=== PATIENT | male | born 1985 | race Caucasian/White ===

== ENCOUNTER 2017-03-07 09:47 | Emergency (ER) | payer OTHER ==
[2017-03-07 10:01] VITALS: BP 160/94
--- NOTE | 2017-03-07 11:00 | ED ---
Medical Screening - HPI Summary HPI Summary: 31 yr old male on Paxil for 8 years for anxiety, ran out of his medication three days ago. He is visiting from [place]. He requests refill of his medication. He has no history of any problems taking his medication. He has never had suicidal or homicidal thoughts. - History of Current Complaint Chief Complaint: UCMedRefill Stated Complaint: MED REFILL Time Seen by Provider: 03/07/17 10:46 PMH/Surg Hx/FS Hx/Imm Hx Psychiatric History: Reports: Hx Anxiety Infectious Disease History: No Infectious Disease History: Denies: Traveled Outside the [place] in Last 30 Days - Family History Known Family History: Positive: None - Social History Occupation: Employed Full-time Alcohol Use: Weekly Substance Use Type: Reports: None Smoking Status (MU): Never Smoked Tobacco Review of Systems Positive: Anxious All Other Systems Reviewed And Are Negative: Yes Physical Exam Triage Information Reviewed: Yes Vital Signs On Initial Exam: Initial Vitals Temp Pulse Resp BP Pulse Ox 98.3 F 78 14 160/94 100 03/07/17 09:56 03/07/17 09:56 03/07/17 09:56 03/07/17 09:56 03/07/17 09:56 Vital Signs Reviewed: Yes Appearance: Positive: Well-Appearing, No Pain Distress Skin: Positive: Warm, Skin Color Reflects Adequate Perfusion Head/Face: Positive: Normal Head/Face Inspection Eyes: Positive: EOMI ENT: Positive: Pharynx normal Respiratory/Lung Sounds: Positive: Clear to Auscultation, Breath Sounds Present Cardiovascular: Positive: RRR. Negative: Murmur Abdomen Description: Positive: Nontender Musculoskeletal: Positive: Strength/ROM Intact Neurological: Positive: Sensory/Motor Intact, Alert, Oriented to Person Place, Time, CN Intact II-III Psychiatric: Positive: Anxious - [place] Coma Scale Best Eye Response: 4 - Spontaneous Best Motor Response: 6 - Obeys Commands Best Verbal Response: 5 - Oriented Diagnostics - Vital Signs Vital Signs Temp Pulse Resp BP Pulse Ox 03/07/17 09:56 98.3 F 78 14 160/94 100 - Laboratory Lab Statement: Any lab studies that have been ordered have been reviewed, and results considered in the medical decision making process. Course/Dx - Course Course Of Treatment: 31 yr old with anxiety history and longstanding Paxil use and stable on that medication. Will refill his script for him. he will follow up with primary care in [place] - Diagnoses Provider Diagnoses: Anxiety, Hypertension Discharge - Discharge Plan Condition: Good Disposition: HOME Prescriptions: PARoxetine HCL TAB* [Paxil TAB*] 20 mg PO DAILY #30 tab Patient Education Materials: Anxiety (ED), Hypertension (ED) Referrals: No Primary Care Phys,NOPCP [Primary Care Provider] - [facility] [Outside] - 2 Days
== END 2017-03-07 11:04 | disposition home or self-care (01) ==
LOC: UCCORT 09:47
DX: F41.9 Anxiety disorder, unspecified (principal); I10 Essential (primary) hypertension
CPT/HCPCS: 99202; G0463